=== PATIENT | female | born 1995 | race American Indian/Alaskan Native ===

== ENCOUNTER 2017-04-16 00:35 | Emergency (ER) | payer SELFPAY ==
[2017-04-16 02:24] VITALS: BP 114/80
== END 2017-04-16 05:25 | disposition left against medical advice (07) ==
LOC: ED 00:35
DX: N64.4 Mastodynia (principal); F17.200 Nicotine dependence, unspecified, uncomplicated; F12.90 Cannabis use, unspecified, uncomplicated; Z53.21 Procedure and treatment not carried out due to patient leaving prior to being seen by health care provider
CPT/HCPCS: 93005; 93010

== ENCOUNTER 2018-01-10 12:41 | Emergency (ER) | payer MEDICAID ==
[2018-01-10 14:51] VITALS: BP 114/68
[2018-01-10] MEDS ORDERED: ZOFRAN ODT PO ONE (14:52)
[2018-01-10] MEDS ORDERED: MOTRIN PO ONE (14:52)
--- NOTE | 2018-01-10 14:53 | Emergency Department Report ---
- General Chief Complaint: Upper Respiratory Infection Stated Complaint: SOB/VOMITING Time Seen by Provider: 01/10/18 14:47 Source: patient Mode of arrival: Ambulatory Limitations: No Limitations - History of Present Illness Initial Comments: 22-year-old female smoker presents with complaint of approximately 3-4 days of persistent nonproductive cough. Patient also states she has had some intermittent nausea after coughing. Denies any chest pain or palpitations. Patient also states she has had some nasal congestion. Denies abdominal pain. Currently on menstrual period. Denies using control or any pleuritic chest pain. MD Complaint: cough Onset/Timin -: days(s) Severity: mild Consistency: constant Worsens With: nothing Associated Symptoms: cough Treatments Prior to Arrival: none - Related Data Previous Rx's Medication Instructions Recorded Last Taken Type Acetaminophen/Codeine [Tylenol #3] 1 tab PO Q6H PRN #20 tab 01/19/16 Unknown Rx Ciprofloxacin HCl [Ciprofloxacin 500 mg PO Q12HR #20 tab 01/19/16 Unknown Rx TAB] Ibuprofen [Motrin] 600 mg PO Q8H PRN #40 tablet 01/19/16 Unknown Rx Albuterol Sulfate [Ventolin HFA] 2 puff IH Q4H PRN #1 hfa.aer.ad 01/10/18 Unknown Rx Benzonatate [Tessalon Perles] 100 mg PO Q8HR PRN #25 capsule 01/10/18 Unknown Rx Ibuprofen [Motrin] 600 mg PO Q8H PRN #25 tablet 01/10/18 Unknown Rx Ondansetron [Zofran Odt] 4 mg PO Q8H PRN #12 tab.rapdis 01/10/18 Unknown Rx Phenylephrine/Dm/Acetaminop/GG 10 ml PO Q6H PRN #1 liquid 01/10/18 Unknown Rx [Mucinex Cevs-Mrx-Qlnkgpjtzy Lq] Allergies Allergy/AdvReac Type Severity Reaction Status Date / Time No Known Allergies Allergy Verified 01/19/16 19:28 ED Review of Systems ROS: Stated complaint: SOB/VOMITING Other details as noted in HPI Constitutional: denies: chills, fever Eyes: denies: eye pain, eye discharge, vision change ENT: denies: ear pain, throat pain Respiratory: cough. denies: shortness of breath, wheezing Cardiovascular: denies: chest pain, palpitations Endocrine: no symptoms reported Gastrointestinal: denies: abdominal pain, nausea, diarrhea Genitourinary: denies: urgency, dysuria, discharge Musculoskeletal: denies: back pain, joint swelling, arthralgia Skin: denies: rash, lesions Neurological: denies: headache, weakness, paresthesias Psychiatric: denies: anxiety, depression Hematological/Lymphatic: denies: easy bleeding, easy bruising ED Past Medical Hx - Past Medical History Previous Medical History?: No - Surgical History Past Surgical History?: No - Social History Smoking Status: Current Some Day Smoker Substance Use Type: None - Medications Home Medications: Home Medications Medication Instructions Recorded Confirmed Last Taken Type Acetaminophen/Codeine [Tylenol #3] 1 tab PO Q6H PRN #20 tab 01/19/16 Unknown Rx Ciprofloxacin HCl [Ciprofloxacin 500 mg PO Q12HR #20 tab 01/19/16 Unknown Rx TAB] Ibuprofen [Motrin] 600 mg PO Q8H PRN #40 tablet 01/19/16 Unknown Rx Albuterol Sulfate [Ventolin HFA] 2 puff IH Q4H PRN #1 hfa.aer.ad 01/10/18 Unknown Rx Benzonatate [Tessalon Perles] 100 mg PO Q8HR PRN #25 capsule 01/10/18 Unknown Rx Ibuprofen [Motrin] 600 mg PO Q8H PRN #25 tablet 01/10/18 Unknown Rx Ondansetron [Zofran Odt] 4 mg PO Q8H PRN #12 tab.rapdis 01/10/18 Unknown Rx Phenylephrine/Dm/Acetaminop/GG 10 ml PO Q6H PRN #1 liquid 01/10/18 Unknown Rx [Mucinex Fffu-Mup-Rjkjrhvcsp Lq] ED Physical Exam - General Limitations: No Limitations General appearance: alert, in no apparent distress - Head Head exam: Present: atraumatic, normocephalic - Eye Eye exam: Present: normal appearance, PERRL, EOMI - ENT ENT exam: Present: mucous membranes moist - Neck Neck exam: Present: normal inspection - Respiratory Respiratory exam: Present: normal lung sounds bilaterally. Absent: respiratory distress - Cardiovascular Cardiovascular Exam: Present: regular rate, normal rhythm. Absent: systolic murmur, diastolic murmur, rubs, gallop - GI/Abdominal GI/Abdominal exam: Present: soft, normal bowel sounds - Extremities Exam Extremities exam: Present: normal inspection - Back Exam Back exam: Present: normal inspection - Neurological Exam Neurological exam: Present: alert, oriented X3 - Psychiatric Psychiatric exam: Present: normal affect, normal mood - Skin Skin exam: Present: warm, dry, intact, normal color. Absent: rash ED Course Vital Signs 01/10/18 01/10/18 01/10/18 12:46 14:49 14:56 Temperature 98.8 F 98.8 F Pulse Rate 88 72 Respiratory 16 18 18 Rate Blood Pressure 109/81 Blood Pressure 114/68 [Right] O2 Sat by Pulse 100 99 Oximetry ED Medical Decision Making - Medical Decision Making A/P: Reactive airway disease, viral syndrome 1-chest x-ray reviewed with Dr. Soares no obvious consolidation. Lungs appears slightly hyperinflated 2-I advised patient to decrease her smoking habits 3-Motrin when necessary, Mucinex when necessary, albuterol inhaler when necessary, Tessalon Perles 4- follow up with primary care doctor Critical care attestation.: If time is entered above; I have spent that time in minutes in the direct care of this critically ill patient, excluding procedure time. ED Disposition Clinical Impression: Viral syndrome Reactive airway disease Qualifiers: Asthma severity: mild Asthma persistence: intermittent Asthma complication type : uncomplicated Qualified Code(s): J45.20 - Mild intermittent asthma, uncomplicated Disposition: - TO HOME OR SELFCARE Is pt being admited?: No Does the pt Need Aspirin: No Condition: Stable Instructions: Reactive Airways Disease (ED), Viral Syndrome (ED), How to Stop Smoking (ED) Prescriptions: Albuterol Sulfate [Ventolin HFA] 2 puff IH Q4H PRN #1 hfa.aer.ad PRN Reason: Shortness Of Breath Benzonatate [Tessalon Perles] 100 mg PO Q8HR PRN #25 capsule PRN Reason: Cough Ibuprofen [Motrin] 600 mg PO Q8H PRN #25 tablet PRN Reason: Pain Ondansetron [Zofran Odt] 4 mg PO Q8H PRN #12 tab.rapdis PRN Reason: Nausea Phenylephrine/Dm/Acetaminop/GG [Mucinex Pcgx-Edb-Wkzvjghjrc Lq] 10 ml PO Q6H PRN #1 liquid PRN Reason: Cough Referrals: [facility] [Provider Group] - 3-5 Days [facility] [Outside] - 3-5 Days Forms: Work/School Release Form(ED) Time of Disposition: 15:09
--- NOTE | 2018-01-10 15:19 | XRay Report ---
Chest 2 views: History: Cough. Findings: Normal cardiomediastinal silhouette. Trachea is midline. No consolidation, pneumothorax or pleural effusion. Impression: No acute cardiopulmonary findings.
== END 2018-01-10 15:26 | disposition home or self-care (01) ==
LOC: ED 12:41
DX: B34.9 Viral infection, unspecified (principal); J45.20 Mild intermittent asthma, uncomplicated; Z72.0 Tobacco use
CPT/HCPCS: 71046; Q0162